=== PATIENT | female | born 1950 | race Caucasian/White ===

== ENCOUNTER → 2019-07-12 | Outpatient (CLI) | payer OTHER | LOC: ULTRA 12:12 | DX: N28.1 Cyst of kidney, acquired (principal) ==

== ENCOUNTER → 2019-07-20 | Outpatient (CLI) | payer OTHER | LOC: NUC 09:21 | DX: R10.11 Right upper quadrant pain (principal) ==

== ENCOUNTER 2019-08-02 08:03 | Observation (INO) | payer OTHER ==
[~2019-08-02] VITALS: Ht 170.2 cm; Wt 68.0 kg
[2019-08-02] VITALS (9 sets, daily range): BP systolic 103–132; BP diastolic 60–79
[~2019-08-02 08:03] MED LIST: CENTRUM SILVER1 EAC4 PO
--- NOTE | 2019-08-02 09:14 | EKG ---
[address] [address] ELECTROCARDIOGRAM REPORT Name: DANIS SRIVASTAVA Room #: 150-4 [facility]#: [id number] ������������������ Admission: 08/02/19 ������������������ Attend Phys: Santiago Faustin MD Discharge: ������������������ Date of : 52 Report #: [id number] ����������������������������������������������������������������� [id number] THIS REPORT FOR: //name// 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 : 1950 Requested By: Karina Andres Order Number: [id number] MD: Arnoldo Song Measurements Intervals [place] Rate: 71 P: 57 MN: 161 QRS: 9 QRSD: 98 T: -5 QT: 406 QTc: 442 Interpretive Statements Sinus rhythm Borderline repolarization abnormality No previous ECG available for comparison Electronically Signed On 08-02-2019 9:14:43 CDT by Arnoldo Song [email or web address] ��������������������������������������������� <ELECTRONICALLY SIGNED> ���������������������������������������� By: Arnoldo Song MD ��������������������������������������������� [birth year]1914 0842 0842 Arnoldo Song MD /BRAD
--- NOTE | 2019-08-02 19:38 | NUR ---
ASSUMED CARE OF PATIENT APPROX. 1400, PT A&OX4, VSS, DENIES PAIN. 4 LAP SITES WITH BANDADES C/D/I, PATIENT UP TO BATHROOM STANDBY ASSIST. NO SIGNS OF DISTRESS, FAMILY AT BEDSIDE, WILL CONTINUE TO MONITOR.
[2019-08-03 03:10] VITALS: BP 120/55
--- NOTE | 2019-08-03 07:42 | NUR ---
progress pt up with sba pain controlled with hydrocodone ivf's and iv antibiotics. 4 lap sites covered with ba's remain c/d/i. plans to dc home today.
[2019-08-03 08:35] VITALS: BP 111/64
--- NOTE | 2019-08-03 11:21 | NUR ---
PT A&OX4, VSS, DENIES PAIN. PATIENT RESTING IN BED. PATIENT URINATING WITHOUT ISSUE, 4 LAP SITES COVERED WITH BANDAIDS C/D/I, NO REDNESS NOTED. ABDOMEN SOFT AND ROUND. PATIENT TOLERATING REG DIET. NO SIGNS OF DISTRESS, WILL CONTINUE TO MONITOR.
--- NOTE | 2019-08-03 12:42 | NUR ---
PT ADMITTED RELATED TO JULES HERNÁNDEZ. CM REVIEWED CHART AND SPOKE WITH CARE TEAM. CM MET WITH PT AT BEDSIDE THIS DAY. PT IS A&O X4. CM ROLE INTRODCUED. PT INDICATED SHE LIVES IN A RANCH STYLE HOUSE WITH HER SPOUSE WITH 2 STEPS TO ENTER AND STEPS TO BASEMENT. 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 PT INDICATED NO DME OR HH HX. PT INDICATED SHE PLANS TO RETURN HOME ONCE MEDICALLY STABLE. PT DOESN'T ANTICIAPTE ANY NEEDS UPON DC. CM TO FOLLOW SHOULD ANY NEEDS ARISE.
[2019-08-03] MEDS ORDERED: HYDROCODON-ACE1 EAC7 PO (14:47)
[2019-08-03 15:13] VITALS: BP 111/64
--- NOTE | 2019-08-03 15:34 | NUR ---
PT DISCHARGED HOME WITH AND DAUGHTER. LAP SITE BANDAIDS C/D/I. PATIENT DENIES PAIN, NO SIGNS OF DISTRESS. PT VERBALIZED UNDERSTAND OF PRESCRIPTION AND DISCHARGE PAPERWORK. ALL BELONGINGS WITH PATIENT, IV REMOVED.
--- NOTE | 2019-08-03 17:06 | PATH ---
[facility] [address] [place] [address] PATHOLOGY RPT PROCEDURE Name: DANAY SRIVASTAVA CARLOS ENRIQUE Room #: 462-P TRISTAN Fritz#: [id number] ������������������ Admission: 08/02/19 ������������������ Date of : 52 Discharge: 08/03/19 Report #: [id number] Path Case #: [id number] [facility] Accession Number: [id number] . 01 Material submitted: . gallbladder - GALLBLADDER . 01 Clinical history: . Cholecystitis acalculus . 02 Diagnosis: Gallbladder, cholecystectomy: - Mild chronic cholecystitis. (IUV:juan; 08/03/2019) QMS/08/03/2019 . 02 Electronically signed: . Lucy Brady MD, Pathologist NPI- [id number] . 01 Gross description: . The specimen is received in formalin, labeled "Empson, Danay, gallbladder", is a previously opened gallbladder measuring 6.0 cm in length and 2.5 cm in maximum diameter with a yellow-green serosa. The cystic duct is patent. The mucosa is corley-brown and granular and with no cholesterolosis. The wall is 0.1 cm in average thickness. No discrete calculi are identified within the lumen or container. Representatively submitted in A1. (SWS; 08/02/2019) SHS/SHS . 02 Pathologist provided ICD-10: K81.1 . 02 CPT . 505159 Specimen Comment: A courtesy copy of this report has been sent to Specimen Comment: [phone], . Specimen Comment: Report sent to / DR CUMMINS Performed at: [address], [place] [id number] MD Jayden Manuel MD Phone: [phone] Performed at: [address] [id number] MD Lucy Brady MD Phone: [phone]
--- NOTE | 2019-08-04 12:49 | O ---
[facility] [place] [address] OPERATIVE REPORT Name: DANIS SRIVASTAVA Room #: 462-P [facility] Gisselle Fritz#: [id number] Admission: 08/02/19 ������������������ Attend Phys: Santiago Faustin MD Discharge: 08/03/19 ������������������ Date of : 52 Report #: [id number] THIS REPORT FOR: //name// CC: Elder Faustin PREOPERATIVE DIAGNOSIS: Acalculous cholecystitis with cholesterolosis. POSTOPERATIVE DIAGNOSIS: Acalculous cholecystitis with cholesterolosis. PROCEDURES PERFORMED: Laparoscopic cholecystectomy with cholangiogram. SURGEON: Santiago Faustin MD ANESTHESIA: General anesthesia. COMPLICATIONS: None. ESTIMATED BLOOD LOSS: 5 mL. FINDINGS: The cystic duct was thickened and scarred, only a small opening was found. Intraoperative cholangiogram showed common duct to be normal. The cholangiogram catheter was identified in the cystic duct. The cystic duct did join the common duct down lower. Common duct is normal without filling defect. DESCRIPTION OF PROCEDURE: With the patient under general anesthesia, abdomen was prepped and draped in sterile fashion. IV antibiotic was administered. Timeout was performed. The 0.25% Marcaine was used to anesthetize the skin. Infraumbilical curvilinear incision was made. After incising through the skin, subcutaneous tissue, fascia identified. Fascia was then opened under visualization. 0 Vicryl suture placed on the fascia edges for retraction. Veress needle was then placed through the peritoneum. Abdominal cavity was insufflated with CO2. After creating pneumoperitoneum, pressure of 15, 11 mm trocar was placed. Two 5 mm trocars were placed in right upper quadrant. Another 5 mm trocar was placed in right epigastrium. The patient's appendix was evaluated and there is no inflammation around the appendix. Appendix is down in the right pelvis. The appendix is somewhat stiff and likely containing stool. The attention was then placed to the gallbladder. The appendix was left alone. Attention was then placed to gallbladder. Gallbladder was identified, lifted over the liver. Two graspers were placed on the gallbladder, one on the fundus, the other one at the neck. The peritoneum was dissected free. The cystic duct was isolated without difficulty. A clip was placed in junction of cystic duct to the gallbladder. The cystic duct was then opened. At this point, it is noted that the cystic duct is fibrotic and the was stenotic. I was able to get the cholangiogram catheter tip in it and the catheter was held with a clip. Fortunately, the dye went in through the catheter, common duct filled out. The cystic duct joins the common duct quite low. Common duct is normal [address] [address] OPERATIVE REPORT Name: DANIS SRIVASTAVA Room #: [facility] Gisselle MParker#: [id number] Admission: 08/02/19 ������������������ Attend Phys: Santiago Faustin MD Discharge: 08/03/19 ������������������ Date of : 52 Report #: [id number] appearing, no filling defect. Cholangiogram catheter was identified in the cystic duct. The cholangiogram catheter was then removed. The proximal portion of cystic duct was clipped x 2 and then divided. The cystic artery was found adjacent to the cystic duct. This was isolated, clipped x 2 proximally and 1 distally and divided. There was a small branch laterally that was clipped x 1 and cauterized. Gallbladder was freed from the liver bed without difficulty. The gallbladder was then retrieved through the 11 mm trocar site. The gallbladder was opened off the field. At the end of the case, there was cholesterolosis identified. No stones were seen. The clips were intact. No bleeding was identified. Irrigation was performed. Irrigation was aspirated out. Trocars were removed. CO2 was evacuated. The fascia defect infraumbilically was closed with exoszi-yo-[id number] 0 Vicryl x 2. Skin was irrigated. Skin was closed with 5-0 PDS. Steri-Strip, Band-Aids applied. The patient was awakened and taken to recovery room. ��������������������������������������������� <ELECTRONICALLY SIGNED> ���������������������������������������� By: Santiago Faustin MD ��������������������������������������������� 08/04/19 1249 [id number] Santiago Faustin MD /nt
== END 2019-08-03 15:37 | disposition home or self-care (01) ==
LOC: OR 08:03 → TBA 08:08 → OR 10:32 → 4W 14:18
PROVIDERS: ADMIT Surgery
DX: K81.9 Cholecystitis, unspecified (principal)
CPT/HCPCS: 50010; 50101; 50411; 50555; 50558; 51489; 53307; 53310; 55245; 55317; 56462; 56525; 56526; 62110; 62900; 70005

== ENCOUNTER → 2021-03-19 | Outpatient (CLI) | payer OTHER ==
[~2021-03-19] MED LIST changes: +HYDROCODON-ACE1 EAC7 PO
== END ==
LOC: ULTRA 13:07
PROVIDERS: ATTEND Family Medicine
DX: D25.9 Leiomyoma of uterus, unspecified (principal); M79.89 Other specified soft tissue disorders